=== PATIENT | female | born 1975 | race Caucasian/White ===

== ENCOUNTER 2016-11-14 11:42 | Emergency (ER) | payer BC, OTHER ==
--- NOTE | ~2016-11-14 | CT2 ---
[facility] A Service of [facility] & [facility] RADIOLOGY TEXT RESULTS PATIENT: SOUTH CARO LOCATION: SED : 79 UNIT #: [id number] AGE: [address]: Filemon Price MD SEX: F ORDER DR: [id number] [address] [address] [id number] E MR#: [id number] Acc #: [id number] NAME: SOUTH CARO. : 1975 SEX: F STUDY DATE/TIME: 11/14/2016 13:11 UNIT: SED ROOM: STUDY DESCRIPTION: CT Abd and Pelv W Cont Attending Physician: Filemon Price M.D. Ordering Physician: Filemon Price M.D. MEDICAL IMAGING REPORT This report is preliminary unless electronic signature is present. EXAM CT of the abdomen and pelvis with contrast INDICATIONS Right lower quadrant pain since this morning. TECHNIQUE Axial CT images were obtained from the dome of the diaphragm through the symphysis pubis following administration of intravenous contrast material. This CT exam was performed with one or more of the following radiation dose reduction techniques: automatic exposure control, adjustment of mA and/or kV according to patient size, and iterative reconstruction. FINDINGS Images through the lung bases are demonstrated. Left basilar atelectasis results in mosaic attenuation which could reflect some air trapping. There is also was attenuation which could reflect some air trapping. Similar of the findings were present in May of 2012. Patient is status post laparoscopic gastric banding procedure. Band appears to project in expected position with no evidence of slippage. Spleen appears unremarkable. Liver is also within normal limits. Patient does have cholelithiasis, although I do not see any evidence of acute cholecystitis. Adrenal glands are normal, as is the pancreas. The kidneys also appear unremarkable. No free fluid or adenopathy seen within the abdomen. There is no evidence mechanical bowel obstruction. I think I can see at least a portion of the appendix and it appears unremarkable. Uterus is heterogeneous, likely reflecting the presence of uterine fibroids. This was also identified in May of 2012. Urinary bladder appears unremarkable. There is a small amount of free fluid seen within the pelvis. Finding is nonspecific but certainly can be a normal finding [facility] A Service of [facility] & [facility] RADIOLOGY TEXT RESULTS PATIENT: SOUTH CARO LOCATION: SED : 77 UNIT #: [id number] AGE: [address]: Filemon Price MD SEX: F ORDER DR: in a 41-year-old woman. GI tract appears unremarkable. Small fat-containing umbilical hernia. Review of bony windows does not demonstrate any aggressive osseous abnormalities. IMPRESSION 1. Cholelithiasis without evidence of acute cholecystitis. 2. Patient does have some mosaic attenuation at the lung bases bilaterally which could reflect some air trapping. Similar findings were present in May of 2012. 3. Changes of prior laparoscopic gastric banding procedure. Band appears to project in expected position without any evidence of slippage. 4. The appendix is visualized and is within normal limits. 5. Suspected uterine fibroids. Dictated by... Salud Melton M.D. THIS IS AN ELECTRONICALLY VERIFIED REPORT Salud Melton M.D. at 11/15/2016 4:58 PM AFF/pcl TD: 11/14/2016 19:37 JOB #: [id number] MEDICAL IMAGING REPORT Page 1 of 1
--- NOTE | ~2016-11-14 | US98 ---
[facility] A Service of [facility] RADIOLOGY TEXT RESULTS PATIENT: SOUTH CARO LOCATION: SED : 77 UNIT #: [id number] AGE: [address]: Filemon Price MD SEX: F ORDER DR: [id number] [place] [id number] E MR#: [id number] Acc #: [id number] NAME: SOUTH CARO. : 1975 SEX: F STUDY DATE/TIME: 11/14/2016 14:53 UNIT: SED ROOM: STUDY DESCRIPTION: US Pelvic Non-OB Complete Attending Physician: Filemon Price M.D. Ordering Physician: Filemon Price M.D. Primary Care Physician: No Primary Care Physician MEDICAL IMAGING REPORT This report is preliminary unless electronic signature is present. EXAM Pelvic ultrasound HISTORY Right lower quadrant pain for 1 day. FINDINGS Ultrasound examination of the pelvis was performed with transabdominal and endovaginal technique. There are two intermediate echotexture uterine masses measuring 2.4 cm and 2.7 cm, and one hypoechoic uterine mass, likely at least partly cystic, measuring 1.8 cm. These are probably uterine fibroids. No endometrial thickening or endometrial fluid. Trace free fluid in the pelvis and small bilateral ovarian follicular cysts, likely incidental and physiologic findings. Blood flow is noted in both ovaries on color Doppler. IMPRESSION 1. Three probable incidental uterine fibroids measuring up to 2.7 cm. 2. No suspicious adnexal mass. Blood flow is noted in both ovaries on color Doppler. 3. Minimal free fluid in the pelvis. Dictated by... Ramo Hurtado M.D. THIS IS AN ELECTRONICALLY VERIFIED REPORT Ramo Hurtado M.D. at 11/15/2016 4:05 PM DFL/psc [facility] A Service of [facility] RADIOLOGY TEXT RESULTS PATIENT: SOUTH CARO LOCATION: SED : 77 UNIT #: [id number] AGE: [address]: Filemon Price MD SEX: F ORDER DR: TD: 11/14/2016 23:24 JOB #: [id number] MEDICAL IMAGING REPORT Page 1 of 1
[~2016-11-14 11:42] MED LIST: ACETAMINOPHEN PO; ALBUTEROL17 GM INH; BENTYL10 M1; CIPRO PO; DICLOFENAC; HYDROCODON-ACE1 EAC9 PO; LEVAQUIN PO; LORTAB 7.5-5001 TAB PO; MUCINEX DM1 TAB.SR . PO; NAPROXEN PO; NO MEDICATIONS; PHENERGAN25 M1 PO; PHENTERMINE H37.5 M1 PO; PHENTERMINE PO; PREDNISONE PO; PREVACID PO; PROTONIX PO; PROTONIX40 MG/BLIS PO; REGLAN10 MG PO; TOPAMAX PO; TYLENOL #3 PO; ULTRAM PO; VOLTAREN75 MG PO; ZITHROMAX PO; ZOFRAN; ZOFRAN ODT4 MG; [UNRECOGNIZED DRUG - OTHER] PO
[2016-11-14 12:15] LABS: BASOPHIL# 0.1 X10e3 (0-0.3); EOSINOPHIL# 0.2 X10e3 (0-0.7); HEMATOCRIT 42.9 % (35.0-45.0); HEMOGLOBIN 14.9 gm/dL (12.0-16.0); LYMPHOCYTE# 2.1 X10e3 (1.0-3.5); LYMPHOCYTE% 25.2 % (17.0-45.0); MEAN CELL VOLUME 95.5 FL (83-96); MEAN CORPUSCULAR HEMOGLOBIN 33.1 PG (28-34); MEAN CORPUSCULAR HGB CONC 34.6 g/dL (30-36); MEAN PLATELET VOLUME 10.2 FL (6.5-11.5); MONOCYTE# 0.6 X10e3 (0-1.0); MONOCYTE% 7.6 % (3.0-12.0); NEUTROPHIL# 5.3 X10e3 (1.5-7.1); NEUTROPHIL% 63.2 % (40-75); PLATELET COUNT 164 X10e3 (140-420); RED BLOOD COUNT 4.49 X10e (3.90-5.30); RED CELL DISTRIBUTION WIDTH 13.5 % (11.0-15.5); WHITE BLOOD COUNT 8.4 X10e3 (4.0-10.5)
[2016-11-14 12:19] LABS: DIFF IND NO
[2016-11-14 12:28] LABS: ALBUMIN SERUM 4.3 g/dL (3.5-5.0); ALKALINE PHOSPHATASE 67 U/L (32-92); ALT (SGPT) 15 U/L (10-40); AMYLASE 16 U/L (0-46); AST (SGOT) 17 U/L (10-42); BILIRUBIN,TOTAL 0.6 mg/dL (0.2-2.0); BLOOD UREA NITROGEN 10 mg/dL (9-23); CARBON DIOXIDE 24 mmol/L (22-31); CHLORIDE 105 mmol/L (100-111); CREATININE SERUM 0.8 mg/dL (0.6-1.4); GLUCOSE FASTING 117 mg/dL (70-110); LIPASE 27 U/L (22-51); POTASSIUM 4.2 mmol/L (3.5-5.1); PROTEIN TOTAL SERUM 7.2 g/dL (6.0-8.3); SODIUM 136 mmol/L (135-145)
[2016-11-14 12:29] LABS: BILIRUBIN, DIRECT <0.1 mg/dL (0.0-0.2); BILIRUBIN,INDIRECT 0.5 mg/dL (0.0-0.9)
[2016-11-14 13:04] LABS: MICRO INDICATED? NO; URINE APPEARANCE CLEAR; URINE BILIRUBIN NEG (NEG); URINE BLOOD NEG (NEG); URINE COLOR YELLOW; URINE GLUCOSE NEG (NORM); URINE KETONE NEG (NEG); URINE LEUKOCYTE ESTERASE NEG (NEG); URINE NITRATE NEG (NEG); URINE PROTEIN NEG (NEG); URINE SOURCE CLEAN CATCH; URINE UROBILINOGEN 0.2 MG/DL (NORM)
== END 2016-11-14 17:24 | disposition home or self-care (01) ==
LOC: SED 11:42
PROVIDERS: Physician Assistant
DX: D25.9 Leiomyoma of uterus, unspecified (principal); Z98.890 Other specified postprocedural states; F17.200 Nicotine dependence, unspecified, uncomplicated
CPT/HCPCS: 36415; 74177; 76830; 76856; 80048; 80076; 81003; 82150; 83690; 84703; 85025; 96361; 96374; 96375; 96376; 99284; J1170; J2270; J2405; J3010; Q9967